=== PATIENT | male | born 1975 | race Caucasian/White ===

== ENCOUNTER → 2016-11-06 | Outpatient (CLI) | payer BC, OTHER ==
[~2016-11-06] MED LIST: ACET325T96 PO; BETA0.053 TOP; CLON0.1T12 PO; LACT12CR18 TD; MAGNSUS5 PO; POLY335019 PO; SENN-61 PO; [UNRECOGNIZED DRUG - CODE] TOP
--- NOTE | 2016-11-06 12:25 | DIAGNOSTIC IMAGING REPORT ---
ULTRASOUND KIDNEYS AND BLADDER CLINICAL HISTORY: Incomplete bladder emptying. COMPARISON STUDY: No priors. TECHNIQUE: Real-time, grayscale, and color flow sonography of the kidneys and bladder is performed. Images are reviewed in the transverse and longitudinal planes. FINDINGS: Kidneys: The kidneys are normal in size and echotexture. The right kidney measures 9.2 x 3.4 x 4.2 cm and the left kidney measures 8.5 x 4.7 x 4.0 cm. There is no hydronephrosis. No shadowing renal calculi are identified. There is no sonographic evidence of contour deforming renal mass lesion. No perinephric fluid is identified. Bladder: The bladder is normal in morphology. Intraluminal debris is identified. Ureteral jets were not seen. The bladder volume measures 228 cc. The patient was unable to void during the examination and a post void measurement could not be assessed. IMPRESSION: 1. The kidneys are normal in size and without hydronephrosis. 2. The bladder is morphologically normal and contain intraluminal debris. Correlation with urinalysis will be required. 3. The bladder volume measured 228 cc of urine. The patient was unable to void during the examination. Post void volume could not be assessed. Electronically signed by: David Earl M.D. 11/06/2016 12:23 PM
== END | disposition home or self-care (01) ==
LOC: C.ULTR 11:57
PROVIDERS: ATTEND Urology
DX: R33.9 Retention of urine, unspecified (principal)